=== PATIENT | male | born 1965 | race American Indian/Alaskan Native ===

== ENCOUNTER 2017-01-17 06:37 | Day surgery (SDC) | payer OTHER ==
[2017-01-17] MEDS ORDERED: WATER FOR IRRIG STERILE IR ONE (08:53)
--- NOTE | 2017-01-17 08:58 | Anesthesia Consultation ---
Anesthesia Consult and Med Hx Date of service: 01/17/17 - Airway Anesthetic Teeth Evaluation: Good ROM Head & Neck: Adequate Mental/Hyoid Distance: Adequate Mallampati Class: Class II Intubation Access Assessment: Probably Good - Pre-Operative Health Status ASA Pre-Surgery Classification: ASA1, ASA2 - Cardiovascular System Hx Heart Murmur: Yes - Endocrine Hx Non-Insulin Dependent Diabetes: Yes (no meds) - Hematic Hx Anemia: Yes
--- NOTE | 2017-01-17 08:59 | Anesthesia Day of Surgery ---
Anesthesia Day of Surgery - Day of Surgery Patient Examined: Yes Patient H&P Reviewed: Yes Patient is NPO: Yes
[2017-01-17] MEDS ORDERED: NACL 0.9% 1000 ML 1,000 ML IV SCH (09:00)
[2017-01-17] MEDS ORDERED: DIPRIVAN 10 MG/ML IV ONE ×2 (09:02→09:18)
--- NOTE | 2017-01-17 09:32 | Short Stay Summary ---
Short Stay Documentation - Allergies and Medications Current Medications: Allergies codeine Adverse Reaction (Verified 01/17/17 08:29) Itching Home Medications Medication Instructions Recorded Confirmed Last Taken Type No Known Home Medications [No 01/17/17 01/17/17 Unknown History Reported Home Medications] Active Medications Sodium Chloride (Nacl 0.9% 1000 Ml) 1,000 mls @ 50 mls/hr IV DIRECT BROOKE Last Admin: 01/17/17 08:57 Dose: 50 mls/hr - Brief post op/procedure progress note Date of procedure: 01/17/17 Pre-op diagnosis: Colon cancer screening (high risk) 2. LGI bleeding Post-op diagnosis: same (1. Colon polyp 2. Poor prep 3. Diverticulosis coli 4. Internal hemorrhoids) Procedure: Colonoscopy with snare polypectomy Anesthesia: MAC Findings: as above Surgeon: LELA WILKES Estimated blood loss: none Pathology: list (1. Ascending colon polyp) Specimen disposition: to lab Condition: stable - Disposition Condition at discharge: Stable Disposition: DC- TO HOME OR SELFCARE Short Stay Discharge Plan Activity: no restrictions Diet: regular, low salt
[2017-01-17 09:59] VITALS: BP 116/82
--- NOTE | 2017-01-17 12:58 | Post Anesthesia Evaluation ---
- Post Anesthesia Evaluation Patient Participated: Yes Airway Patent: Yes Stable Respiratory Function: Yes Nausea/Vomiting: No Temp > 96.8F: Yes Pain Manageable: Yes Adequeate Hydration: Yes Anesthesia Complications: No Block Receding Appropriately: Not Applicable Patient on Ventilator: No
== END 2017-01-17 06:38 | disposition home or self-care (01) ==
LOC: GIO 06:37 → EDSEX 06:37 → GIO 06:38
PROVIDERS: ATTEND Internal Medicine Gastroenterology
DX: D12.2 Benign neoplasm of ascending colon (principal); K57.30 Diverticulosis of large intestine without perforation or abscess without bleeding; K64.8 Other hemorrhoids; D64.9 Anemia, unspecified; E11.9 Type 2 diabetes mellitus without complications; M10.9 Gout, unspecified; Z72.89 Other problems related to lifestyle; Z90.49 Acquired absence of other specified parts of digestive tract; Z80.0 Family history of malignant neoplasm of digestive organs; Z83.3 Family history of diabetes mellitus
CPT/HCPCS: 45380; 82962; 88305; J2704; J7030